=== PATIENT | male | born 1955 ===

== ENCOUNTER 2017-09-18 11:45 | Emergency (ER) | payer SELFPAY ==
[2017-09-18 11:55] VITALS: BP 100/64; PULSE 66; RESP 20; TEMP 96.8; O2SAT 97
[2017-09-18 11:56] VITALS: BMI 26.7
[2017-09-18] MEDS ORDERED: Oxycodone/Acetaminophen 5/325 mg Tab PO STA (12:15)
[2017-09-18] MEDS ORDERED: Oxycodone/Acetaminophen 5/325 mg Tab ONE (12:19)
--- NOTE | 2017-09-18 12:29 | ED PDOC ---
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 Patient reports that he was coming out of the bus when he slipped on snow, he fell forward and landed on his right side. Patient took Motrin for the pain prior to arrival. He denies any fever, chills, LOC or other medical complaints. PMD: None provided. - Fall Fall:Prior To Injury: Slipped Past Medical History Reviewed: Historical Data, Nursing Documentation, Vital Signs Vital Signs: Last Vital Signs Temp 96.8 F L 09/18/17 11:55 Pulse 66 09/18/17 11:55 Resp 20 09/18/17 11:55 BP 100/64 09/18/17 11:55 Pulse Ox 97 09/18/17 14:40 - Medical History PMH: No Chronic Diseases - Surgical History Surgical History: Appendectomy - Family History Family History: States: Unknown Family Hx - Home Medications Home Medications: Ambulatory Orders Medication Instructions Recorded Ibuprofen [Motrin] 600 mg PO Q6 #20 tab 09/18/17 oxyCODONE/Acetaminophen [Percocet 1 ea PO Q6 PRN #10 tab 09/18/17 5/325 mg Tab] - Allergies Allergies/Adverse Reactions: Allergies Allergy/AdvReac Type Severity Reaction Status Date / Time No Known Allergies Allergy Verified 10/15/16 14:31 Review of Systems ROS Statement: Except As Marked, All Systems Reviewed And Found Negative Constitutional: Negative for: Fever, Chills Musculoskeletal: Positive for: Arm Pain (right wrist injury) Neurological: Negative for: Other Physical Exam - Reviewed Nursing Documentation Reviewed: Yes Vital Signs Reviewed: Yes - Physical Exam Appears: Positive for: Well, Non-toxic Head Exam: Positive for: ATRAUMATIC, NORMAL INSPECTION Skin: Positive for: Normal Color, Warm, Dry Eye Exam: Positive for: Normal appearance Neck: Positive for: Normal, Painless ROM, Supple Extremity: Positive for: Normal ROM (Right wrist full ROM. ), Deformity (dorsal angulation. +2 Radial pulse), Swelling (edema on dorsal aspect of right wrist), Other (Motor sensory intact). Negative for: Pedal Edema, Calf Tenderness Neurologic/Psych: Positive for: Alert, Oriented - ECG O2 Sat by Pulse Oximetry: 97 (RA) Pulse Ox Interpretation: Normal Medical Decision Making Medical Decision Making: Initial Impression: Right wrist injury s/p fall Initial Plan: --Percocet 5/325 mg Tab 1 tab PO --Forearm right [RAD] --Hand right 3 views [RAD] --Wrist, Right 3 views [RAD] --reevaluation 12:33 Hand X-Ray FINDINGS: BONES: Comminuted distal radial fracture with in intra articular extension volar apex angulation -dorsal radial articular surface tilting.Flake chip fracture fragment ulnar styloid JOINTS: 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 SOFT TISSUES: Normal. OTHER FINDINGS: None. IMPRESSION: Comminuted distal radial fracture with in intra articular extension volar apex angulation -dorsal radial articular surface tilting.Flake chip fracture fragment ulnar styloid 12:33 Forearm X-Ray FINDINGS: BONES: A distal radial comminuted fracture is partially visualized. Please note patient 's same-day right wrist x-ray report JOINT SPACES: Unremarkable. OTHER FINDINGS: None. IMPRESSION: Partially visualize comminuted distal radial fracture.Please note patient's same -day right wrist x-ray report 12:33 Wrist X-Ray FINDINGS: BONES: Comminuted distal radial metaphyseal to epiphyseal fracture. Extension closely approximates the radial ulnar joint. Extension into the radiocarpal joint. Radial fractured apex volarly angulated with radial articular surface dorsally tilted Flake chip fracture fragment ulnar styloid noted. JOINTS: Normal. No dislocation. SOFT TISSUES: Normal. OTHER FINDINGS: None. IMPRESSION: Comminuted distal radial fracture with in intra articular extension volar apex angulation -dorsal radial articular surface tilting. Flake chip fracture fragment ulnar styloid 13:50 PROCEDURE: SPLINT APPLICATION Applied by Cartridge Filler, supervised by Emergency Provider. Location: Right forearm Procedure: The area of the splint was appropriately positioned. A splint was applied. Post-procedure: Good position. Neurovascular status remains intact. Patient tolerated the procedure well with no immediate complications. 14:33 --Upon provider reevaluation patient is feeling better, is medically stable, and requires no further treatment in the ED at this time. Patient will be discharged with Rx for motrin and percocet. Counseling was provided and all questions were answered regarding diagnosis and need for follow up with orthopedist. There is agreement to discharge plan. Return if symptoms persist or worsen. ~ Scribe Attestation: Documented by Mauri Goodwin, acting as a scribe for Melani Villatoro PA-C. Provider Scribe Attestation: All medical record entries made by the Scribe were at my direction and personally dictated by me. I have reviewed the chart and agree that the record accurately reflects my personal performance of the history, physical exam, medical decision making, and the department course for this patient. I have also personally directed, reviewed, and agree with the discharge instructions and disposition. Disposition - Clinical Impression Clinical Impression: Wrist fracture - Patient ED Disposition Is Patient to be Admitted: No - Disposition Referrals: Eddie Us MD [Staff Provider] - Disposition: Routine/Home Disposition Time: 14:33 Condition: STABLE Prescriptions: Ibuprofen [Motrin] 600 mg PO Q6 #20 tab oxyCODONE/Acetaminophen [Percocet 5/325 mg Tab] 1 ea PO Q6 PRN #10 tab PRN Reason: Pain, Severe (8-10) Instructions: Wrist Fracture in Adults (ED) Forms: [employer] (Macedonian) Print Language: QATARI
--- NOTE | 2017-09-18 12:42 | RAD ---
PROCEDURE: Radiographs of the Right Forearm HISTORY: pain s/p slip and fall COMPARISON: None available. TECHNIQUE: Frontal and lateral views obtained. FINDINGS: BONES: A distal radial comminuted fracture is partially visualized. Please note patient's same-day right wrist x-ray report JOINT SPACES: Unremarkable. OTHER FINDINGS: None. IMPRESSION: Partially visualize comminuted distal radial fracture.Please note patient's same-day right wrist x-ray report
--- NOTE | 2017-09-18 12:46 | RAD ---
PROCEDURE: Right Wrist Radiographs. HISTORY: fracture COMPARISON: None. FINDINGS: BONES: Comminuted distal radial metaphyseal to epiphyseal fracture. Extension closely approximates the radial ulnar joint. Extension into the radiocarpal joint. Radial fractured apex volarly angulated with radial articular surface dorsally tilted Flake chip fracture fragment ulnar styloid noted. . JOINTS: Normal. No dislocation. SOFT TISSUES: Normal. OTHER FINDINGS: None. IMPRESSION: Comminuted distal radial fracture with in intra articular extension volar apex angulation -dorsal radial articular surface tilting. Flake chip fracture fragment ulnar styloid
--- NOTE | 2017-09-18 12:47 | RAD ---
PROCEDURE: Right Hand Radiographs. HISTORY: pain s/p slip and fall COMPARISON: None. 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 SOFT TISSUES: Normal. OTHER FINDINGS: None. IMPRESSION: Comminuted distal radial fracture with in intra articular extension volar apex angulation -dorsal radial articular surface tilting.Flake chip fracture fragment ulnar styloid
== END 2017-09-18 14:37 | disposition home or self-care (01) ==
LOC: H.ER 11:45
DX: S62.91XA Unspecified fracture of right hand, initial encounter for closed fracture (principal); W00.0XXA Fall on same level due to ice and snow, initial encounter; Y92.480 Sidewalk as the place of occurrence of the external cause